=== PATIENT | male | born 1965 | race Caucasian/White ===

== ENCOUNTER → 2017-08-17 | Outpatient (REF) | payer OTHER ==
[2017-08-17 21:46] LABS: ALKALINE PHOSPHATASE 81 U/L (45-117); ALT/SGPT 56 U/L (12-78); ANION GAP 5 MEQ/L (8-16); AST/SGOT 32 U/L (7-37); BILIRUBIN,TOTAL 0.4 MG/DL (0.2-1.0); BLOOD UREA NITROGEN 11 MG/DL (7-18); CALCIUM LEVEL 8.7 MG/DL (8.5-10.1); CARBON DIOXIDE LEVEL 30 MEQ/L (21-32); CHLORIDE LEVEL 108 MEQ/L (98-107); CHOLESTEROL LEVEL 89 MG/DL (<200); CREATININE FOR GFR 0.83 MG/DL (0.70-1.30); GLOMERULAR FILTRATION RATE > 60.0 (>56); GLUCOSE, FASTING 77 MG/DL (70-100); HDL CHOLESTEROL 39 MG/DL (>40); POTASSIUM SERUM 4.5 MEQ/L (3.5-5.1); SODIUM LEVEL 143 MEQ/L (136-145); TRIGLYCERIDES LEVEL 141 MG/DL (<150)
[2017-08-17 21:47] LABS: ALBUMIN 4.1 GM/DL (3.2-5.2); ALBUMIN/GLOBULIN RATIO 1.24 (1.00-1.93); CHOLESTEROL RISK RATIO 2.282 (<5); FERRITIN 99 NG/ML (26-388); IRON (FE) 108 UG/DL (65-175); LDL CHOLESTEROL 21.8 MG/DL (<100); NON-HDL-C 50 MG/DL; PERCENT SATURATION 38.2 % (19.7-50.0); TOTAL IRON BINDING CAPACITY 283 UG/DL (250-450); TOTAL PROTEIN 7.4 GM/DL (6.4-8.2)
[2017-08-17 22:37] LABS: HEMATOCRIT 40.5 % (42.0-52.0); HEMOGLOBIN 14.1 g/dl (13.5-17.5); MEAN CORPUSCULAR HGB CONC 34.8 g/dl (32.0-36.5); MEAN CORPUSCULAR VOLUME 94.8 fl (80.0-96.0); PLATELET COUNT, AUTOMATED 235 10^3/uL (150-450); RED BLOOD COUNT 4.27 10^6/uL (4.30-6.10); RED CELL DISTRIBUTION WIDTH 12.3 % (11.5-14.5); WHITE BLOOD COUNT 5.8 10^3/uL (4.0-10.0)
[2017-08-18 14:38] LABS: TOTAL 25(OH) VITAMIN D 57.5 NG/ML (30.0-100.0)
== END ==
LOC: M SFHCLERA 10:28
DX: E83.119 Hemochromatosis, unspecified (principal); E78.5 Hyperlipidemia, unspecified; E55.9 Vitamin D deficiency, unspecified

== ENCOUNTER → 2017-11-27 | Outpatient (CLI) | payer BC, OTHER | LOC: M LRY 10:53 | DX: R06.02 Shortness of breath (principal) ==

== ENCOUNTER 2018-04-26 18:20 | Day surgery (SDC) | payer BC, OTHER ==
[~2018-04-26] VITALS: Ht 182.9 cm; Wt 95.5 kg
[2018-04-26] MEDS ORDERED: NS 1,000 ML IV SCH (18:29)
[2018-04-26] MEDS ORDERED: MORPHINE 4 MG/ML 1ML VIAL/SYRINGE (J2270) IV ONE (18:30)
[2018-04-26] MEDS ORDERED: ROSU40TA3 PO (18:35)
[2018-04-26] MEDS ORDERED: fentaNYL 100 MCG/2 ML INJECTION (J3010) As Ordered ONE ×2 (19:20→21:06)
[2018-04-26] MEDS ORDERED: fentaNYL 100 MCG/2 ML INJECTION (J3010) IV ONE (19:30)
--- NOTE | 2018-04-26 19:36 | REP ---
Right ankle: Four views. History: Trauma. Findings: Four views right ankle demonstrate a trimalleolar fracture dislocation of the right ankle. The foot is dislocated posteriorly and laterally. Medial malleolar, posterior tibial, and oblique distal fibular fractures are seen. No hindfoot fracture is seen. There is associated swelling. Impression: Trimalleolar fracture dislocation of the right ankle. Electronically Signed by Sean Lamb MD 04/26/2018 07:28 P
--- NOTE | 2018-04-26 20:35 | REPVR ---
EXAM: CT Right Lower Extremity Without IV Contrast, Ankle EXAM DATE/TIME: 04/26/2018 7:55 PM CLINICAL HISTORY: 53 years old, male; Pain; Ankle; Bilateral; Additional info: Trauma TECHNIQUE: CT of the Right lower extremity without intravenous contrast was performed. Exam focused on the ankle. All CT scans at this facility use at least one of these dose optimization techniques: automated exposure control; mA and/or kV adjustment per patient size (includes targeted exams where dose is matched to clinical indication); or iterative reconstruction. Coronal and sagittal reformatted images were created and reviewed. COMPARISON: CR Ankle, complete 04/26/2018 6:36 PM FINDINGS: There is a trimalleolar fracture of the distal tibia with posterior dislocation of the talus. There is a long oblique fracture of the distal fibular metaphysis, a comminuted fracture of the medial malleolus and a comminuted fracture the posterior tibial malleolus, all of which are posteriorly displaced along with the posterior dislocation of the talus. The lateral talofibular joint and medial tibiotalar joint spaces are maintained. No fracture of the talus is identified. There is a tiny amount of gas within the lateral aspect of the ankle joint (axial images 48 and 49), likely vacuum phenomenon. The sequelae of a compound injury is not excluded. The subtalar, talonavicular and calcaneocuboid joints are unremarkable. IMPRESSION: Trimalleolar ankle fracture with posterior dislocation of the talus. Electronically signed by: Felton Wan On 04/26/2018 20:35:19 PM
[2018-04-26] MEDS ORDERED: D 50CAP PO (20:46)
[2018-04-26] MEDS ORDERED: PROPOFOL 200 MG/20 ML VIAL As Ordered ONE ×4 (21:02→23:39)
[2018-04-26] MEDS ORDERED: ONDANSETRON 4MG/2ML VIAL (J2405) As Ordered ONE ×2 (21:02→22:28)
[2018-04-26] MEDS ORDERED: dexameTHASONE 4 MG/ML 1ML VIAL (J1100) As Ordered ONE ×2 (21:02→22:28)
[2018-04-26] MEDS ORDERED: LIDOCAINE 2% INJ 100 MG/5 ML SDV (FOR ANES.) As Ordered ONE ×2 (21:03→22:28)
[2018-04-26] MEDS ORDERED: MIDAZOLAM INJ 2 MG/2 ML VIAL (J2250) As Ordered ONE (21:06)
[2018-04-26] MEDS ORDERED: BUPIVACAINE/EPIN 0.25% 30 ML VIAL As Ordered ONE (21:59)
[2018-04-26] MEDS ORDERED: ceFAZolin 2 GM/D5W 50 ML IV BAG (J0690 PER 500MG) As Ordered ONE (21:59)
[2018-04-26] MEDS ORDERED: BUPIVACAINE/DEXTROSE 0.75% 2 ML AMP As Ordered ONE (22:28)
[2018-04-27] VITALS (9 sets, daily range): BP systolic 125–145; BP diastolic 31–83
[2018-04-27] MEDS ORDERED: LR 1,000 ML IV SCH (00:45)
[2018-04-27] MEDS ORDERED: METOCLOPRAMIDE INJ 10MG/2ML VIAL (J2765) IV PRN (00:45)
[2018-04-27] MEDS ORDERED: PERCOCET 5MG/325MG TAB PO PRN ×2 (00:45→01:30)
[2018-04-27] MEDS ORDERED: ONDANSETRON 4MG/2ML VIAL (J2405) IV PRN (00:45)
[2018-04-27] MEDS ORDERED: fentaNYL 100 MCG/2 ML INJECTION (J3010) IV PRN (00:45)
[2018-04-27] MEDS ORDERED: PERCOCET 5MG/325MG TAB As Ordered ONE (00:58)
[2018-04-27] MEDS ORDERED: PROMETHAZINE INJ 25 MG/ML VIAL (J2550) IV PRN (01:30)
[2018-04-27] MEDS ORDERED: D5W/LR 1,000 ML IV SCH (01:30)
[2018-04-27] MEDS ORDERED: MORPHINE 4 MG/ML 1ML VIAL/SYRINGE (J2270) IV PRN (01:30)
[2018-04-27] MEDS: PERCOCET 5MG/325MG TAB PO PRN ×2 (03:20→15:13)
--- NOTE | 2018-04-27 04:29 | REP ---
Clinical: Fracture fixation. Technique: Intraoperative fluoroscopic imaging using portable C-arm technique. Findings: Three intraoperative images demonstrate the patient to be status post fixation for medial malleolar fracture. Satisfactory alignment of the fracture fragment and placement of two compression screws into the distal tibial metaphysis noted. Total fluoroscopic time 49 seconds. Impression: Status post open reduction and fixation for medial malleolar fracture. Electronically Signed by Jerzy Palomino MD 04/27/2018 04:20 A
[2018-04-27] MEDS ORDERED: ASPI325T PO (06:26)
[2018-04-27] MEDS ORDERED: PERC5TAB12 PO (06:26)
[2018-04-27] MEDS ORDERED: TAMSULOSIN 0.4 MG CAP PO SCH (09:00)
[2018-04-27] MEDS ORDERED: ASPIRIN ENTERIC 325 MG TAB PO SCH (09:00)
--- NOTE | 2018-04-27 13:17 | RO ---
DATE OF PROCEDURE: 04/26/2018 The procedure was finished on 04/27/2018 at 0030 hours in the morning. PREOPERATIVE DIAGNOSIS: Right ankle trimalleolar fracture-dislocation. POSTOPERATIVE DIAGNOSIS: Right ankle trimalleolar fracture-dislocation. PROCEDURE PERFORMED: Open reduction, internal fixation of right ankle trimalleolar fracture-dislocation with fixation of medial malleolus, as well as the lateral malleolus. SURGEON: Jamal Ramirez MD ANESTHESIA: Dr. Roman, spinal. ESTIMATED BLOOD LOSS: Less than 50. COMPLICATIONS: None. TOURNIQUET: No tourniquet was inflated. INDICATIONS: Right ankle fracture-dislocation required an emergency to get the care implemented promptly prior to fracture blisters. Next, consent reviewed in detail, see separate comments on consent in History and Physical. OPERATIVE COURSE: Identified in the holding area, site and side verified, brought to brought to the operating room. Once spinal anesthesia was administered, he was then sterilely prepped and draped in the usual fashion. A tourniquet was placed on the right thigh but was not inflated. Next, we began the surgical procedure. Incisions outlined with a marking pen and infiltrated with 0.25% Marcaine with epinephrine. There was a semilunar area of dusky skin proximal to the medial malleolus but no open wound. Next, lateral malleolus incision was made first with a #10 blade knife, developed down through skin, subcuticular tissues, quite significant soft tissue disruption was appreciated here and the fracture was also encountered. The fracture was exposed and fracture reduction clamps were utilized to reduce the fracture anatomically. Anterior-posterior lag screw was placed to secure the fracture. Next, I was able to remove the fracture reduction forceps. I selected an 8-hole plate. The plate was contoured and I drilled and placed the appropriate cortical and cancellus screws. Next, irrigation was accomplished. I provisionally closed the soft tissue to allow wound closure. Next, attention turned to medial malleolus. Fluoroscopic visualization was obtained. The medial malleolus was slightly displaced. I was not able to reduce the medial malleolus with a percutaneous wire so I did make an incision inferior to the dusky tissue. This was about 1 fingerbreadth from the dusky tissue, dissected through soft tissue, deltoid ligament was significantly disrupted, fracture was encountered. There was some deltoid incarceration within the fracture and this was cleared. Next, I reduced the medial malleolus fragment using a wire and then I placed a wire across the fracture. I placed a second wire and visualized the wire fluoroscopically. I measured, drilled and placed #4-0 cannulated screws; 36 and 40 mm, respectively. Fluoroscopy was utilized to verify the reduction was significantly implemented. Next, several fluoroscopic views were obtained, including a lateral view, which reflected good reduction. Next, irrigation was accomplished. Wound was closed medially with interrupted nylon stitch. Wound was further closed laterally; prior to wound closure I did change the AP lag screw for an 18 mm screw rather than a 20 mm screw initially placed. The wound was closed with tyra. Next, sterile dressing was applied and a short-leg plaster cast was applied. Next, the patient moved to the recovery room in good condition. We elevated the leg on two pillows. I talked to the patient and the patient's spouse postoperatively. For further details, please refer to the medical record.
--- NOTE | 2018-04-28 21:25 | ER ---
DATE OF CONSULTATION: 04/26/2018 CHIEF COMPLAINT: Right ankle fracture-dislocation. HISTORY OF PRESENT ILLNESS: 53-year-old gentleman slipped on ice in the parking lot at work, sustained an ankle fracture with deformity, was unable to ambulate, and was brought into the emergency room for further evaluation where imaging studies reflected a trimalleolar fracture-dislocation with some comminution. CT scan also accomplished in the emergency room (ER) reflected no pilon fracture but quite significant fracture of the fibula, dislocation of the joint, small posterior malleolar fragment, and a medial malleolar fragment. Orthopedics was consulted. Patient's pain is controlled with narcotic analgesics. ALLERGIES: No known drug allergies. MEDICAL HISTORY: Includes hemochromatosis and sarcoidosis. SURGICAL HISTORY: Includes lung biopsy for sarcoidosis. MEDICATIONS: Takes vitamin D. FAMILY HISTORY: Noncontributory. SOCIAL HISTORY: . No alcohol today. Last meal 11:30 a.m., [employer] sandwich. REVIEW OF SYSTEMS: Is not complaining of headache, nausea, shortness of breath, chest pains, abdominal pains, endocrine troubles, skin troubles, neurologic issues. Is complaining of musculoskeletal pain due to his injury. CLINICAL EXAMINATION: Alert and cooperative. Mood and affect appropriate. He is a very pleasant gentleman. He is not short of breath. Cardiac: Regular at 70. No abdominal distension. Right lower extremity: The ankle is in a splint placed by the ER, appreciates light touch. Toes are pink. Painful right lower extremity with any manipulation. Knee: There is no effusion. Contralateral side uninvolved. IMAGING: Reviewed as above. Despite reduction attempt by ER, ankle remains dislocated. IMPRESSION: Trimalleolar fracture-dislocation of the right lower extremity. RECOMMENDATIONS: I talked with the patient about interventions, including conscious sedation and reduction in the ER versus declaring an emergency and doing this case emergently in the operating room, which is what I recommend as we feel that we can do this case promptly. Short-form history and physical (H and P) and a consent document were completed, including a karla discussion of risks and benefits of the operative procedure including, but not limited to, pain, failure, limp, infection, need for more surgery, blood clots, deformity, and other issues. Patient agrees to proceed. Next, coordinated care with the emergency department. Coordinated care with the anesthesia department. Coordinated care with the operating room (OR) staff. For further details, please refer to the medical record.
== END 2018-04-27 15:30 | disposition home or self-care (01) ==
LOC: EDBD 18:20 → M ED 18:20 → M SDC 20:00 → M PED 04-27 01:18 → M SDC 04-27 15:30
PROVIDERS: ATTEND Orthopaedic Surgery
DX: S82.851A Displaced trimalleolar fracture of right lower leg, initial encounter for closed fracture (principal); W00.0XXA Fall on same level due to ice and snow, initial encounter; E78.5 Hyperlipidemia, unspecified; G47.33 Obstructive sleep apnea (adult) (pediatric); D86.0 Sarcoidosis of lung; E83.119 Hemochromatosis, unspecified; Z79.01 Long term (current) use of anticoagulants
CPT/HCPCS: 27822; 73610; 73700; 76000; 96374; 97116; 97161; 97530; 99284; C1713; J0690; J1100; J2250; J2270; J2405; J3010

== ENCOUNTER → 2018-10-03 | Outpatient (REF) | payer OTHER ==
[~2018-10-03] MED LIST: ASPI-1 PO; D 50CAP PO; PERC5TAB12 PO; ROSU40TA4 PO
[2018-10-03 12:58] LABS: BASO % 0.7 % (0.0-1.0); EOS # 0.2 10^3/uL (0.0-0.50); EOS % 2.9 % (0.0-3.0); HEMATOCRIT 41.5 % (42.0-52.0); HEMOGLOBIN 14.3 g/dl (13.5-17.5); LYMPH # 1.4 10^3/uL (1.5-4.5); LYMPH % 24.4 % (24.0-44.0); MEAN CORPUSCULAR HEMOGLOBIN 33.9 pg (27.0-33.0); MEAN CORPUSCULAR HGB CONC 34.5 g/dl (32.0-36.5); MEAN CORPUSCULAR VOLUME 98.3 fl (80.0-96.0); MONO # 0.5 10^3/uL (0.0-0.8); MONO % 9.3 % (0.0-5.0); NEUTROPHILS # 3.6 10^3/uL (1.8-7.7); NEUTROPHILS % 62.4 % (36.0-66.0); PLATELET COUNT, AUTOMATED 243 10^3/uL (150-450); RED BLOOD COUNT 4.22 10^6/uL (4.30-6.10); WHITE BLOOD COUNT 5.8 10^3/uL (4.0-10.0)
[2018-10-03 13:01] LABS: ALT/SGPT 44 U/L (12-78); BILIRUBIN,TOTAL 0.4 MG/DL (0.2-1.0); BLOOD UREA NITROGEN 15 MG/DL (7-18); CALCIUM LEVEL 9.6 MG/DL (8.5-10.1); CARBON DIOXIDE LEVEL 31 MEQ/L (21-32); CHLORIDE LEVEL 106 MEQ/L (98-107); CHOLESTEROL LEVEL 105 MG/DL (<200); CHOLESTEROL RISK RATIO 2.916 (<5); CREATININE FOR GFR 0.79 MG/DL (0.70-1.30); FERRITIN 86 NG/ML (26-388); GLOMERULAR FILTRATION RATE > 60.0 (>56); GLUCOSE, FASTING 84 MG/DL (70-100); HDL CHOLESTEROL 36 MG/DL (>40); LDL CHOLESTEROL 37 MG/DL (<100); NON-HDL-C 69 MG/DL; POTASSIUM SERUM 4.6 MEQ/L (3.5-5.1); SODIUM LEVEL 141 MEQ/L (136-145); TOTAL PROTEIN 7.8 GM/DL (6.4-8.2); TRIGLYCERIDES LEVEL 158 MG/DL (<150)
[2018-10-03 13:07] LABS: TOTAL 25(OH) VITAMIN D 75.9 NG/ML (30.0-100.0)
[2018-10-03 13:28] LABS: HEMOGLOBIN A1c 5.7 %
== END ==
LOC: M SFHCLERA 08:37
PROVIDERS: ATTEND Family Medicine
DX: E55.9 Vitamin D deficiency, unspecified (principal); E83.119 Hemochromatosis, unspecified; D86.9 Sarcoidosis, unspecified; E78.5 Hyperlipidemia, unspecified

== ENCOUNTER → 2021-01-17 | Outpatient (CLI) | payer OTHER ==
[~2021-01-17] MED LIST changes: +D-50CAP PO; +VITMTA PO
== END ==
LOC: M LABSMTC 09:30
PROVIDERS: ATTEND Anesthesiology
DX: Z20.828 Contact with and (suspected) exposure to other viral communicable diseases (principal); Z11.52 Encounter for screening for COVID-19

== ENCOUNTER 2021-01-22 08:47 | Day surgery (SDC) | payer OTHER ==
[~2021-01-22] VITALS: Ht 182.9 cm; Wt 95.2 kg
[~2021-01-22 08:47] MED LIST changes: +LIDOCAINE 2% 100MG/5ML SDV (FOR ANES.) As Ordered ONE; +NS 1,000 ML IV ONE; +propofoL 200 MG/20 ML VIAL As Ordered ONE
--- OUTSIDE RECORDS SUMMARY | 2021-01-22 08:52 | CCD | Continuity of Care Document ---
Author Akhil Argueta M.D. Organization Unknown Address [address], [address] [place] [address] Phone [phone] Care Team Providers Care Financial Institution Branch Manager Name Role Phone Karen Dominguez M.D. AUTM [phone] Problems Description No Information Available Social History Type Date Description Comments Sex Unknown Tobacco Use Start: Unknown Never Smoked Cigarettes ETOH Use 1/mo Tobacco Use Start: Unknown Non Smoker Smoking Status Reviewed: 09/04/19 Non Smoker Allergies and adverse reactions Description No Known Drug Allergies Medications Active Medications SIG Qnty Indications Ordering Provide r Date Vitamin D-3 125mcg (5000 Ut) Tablets 1t/d Unknown Multivitamin Adult Tablets 1 t/d Unknown Rosuvastatin Calcium 40mg Tablets 1t/d Unknown CPAP Device marras Unknown Immunizations Description No Information Available Vital Signs Date Vital Result Comment 12/11/2020 11:16am BP Systolic 132 mmHg BP Diastolic 74 mmHg Height 72 inches 6'0" Weight 213.00 lb BMI (Body Mass Index) 28.9 kg/m2 [place] Body Weight 178 lb Weight 96.617 kg BSA (Body Surface Area) 2.19 m2 12/03/2020 2:12pm BP Systolic 140 mmHg BP Diastolic 70 mmHg Heart Rate 78 /min O2 % BldC Oximetry 98 % Height 72.5 inches 6'0.50" Weight 214.00 lb BMI (Body Mass Index) 28.6 kg/m2 [place] Body Weight 178 lb Weight 97.070 kg BSA (Body Surface Area) 2.20 m2 Results Test Acquired Date Facility Test Result H/L Range Note FVL/Uli 12/03/2020 [facility] SEE IMAGE FVC-Pred 5.38 L FVC-Pre 3.61 L FVC-%Pred-Pre 67 L FVC-LLN 4.38 L Fev1-Pred 4.13 L Fev1-Pre 3.01 L Fev1-%Pred-Pre 73 L Fev1-LLN 3.28 L Fev6-Pred 5.17 L Fev6-Pre 3.61 L Fev6-%Pred-Pre 69 L Fev6-LLN 4.20 L Kfw0mxc-Hcpb 77 % Ujy9buv-Hvc 84 % Yyg6wjy-%Pred-Pre 108 % Mbz3qcj-DTO 67 % Ycr3ktf-Mcgw 96 % Obl2vjh-Cxp 100 % Cxv9thd-%Pred-Pre 103 % FEFMax-Pred 10.19 L/E/sec FEFMax-Pre 5.77 L/E/sec FEFMax-%Pred-Pre 56 L/E/sec FEFMax-LLN 7.70 L/E/sec Zkk0105-Kcps 3.51 L/E/sec Cci1619-Gvp 3.46 L/E/sec Qio0147-%Pred-Pre 98 L/E/sec Soa3738-VEN 1.79 L/E/sec ExpTime-Pre 6.51 sec Qtb0axp0-Pgqa 80 % Xxk6erm6-Xxf 84 % Iae6owt3-%Pred-Pre 104 % Ssr4vsj6-LWE 71 % Procedures Date Code Description Status 12/11/2020 34964 Office/Outpatient New Moderate M DM 45-59 Minutes Completed 12/03/2020 84537 Office/Outpatient Established Mo d MDM 30-39 Min Completed 12/03/2020 38724 Spirometry Completed Medical Devices Description No Information Available Encounters Type Date Location Provider Dx Diagnosis Office Visit 12/11/2020 10:30a [facility] Gastroenterology Onesimo Calabrese M.D. K62.5 Hemorrhage of anus and rectu m K63.5 Polyp of colon Office Visit 12/03/2020 2:00p [facility] Pulmonary/Thoracic Yanna Medina M.D. 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 12/11/2020 K63.5 Polyp of colon Jose Ferreira ala, M.D. 12/03/2020 D86.2 Sarcoidosis of lung with sarcoid osis of lymph nodes Yanna Herrmann M.D. 12/03/2020 G47.33 Obstructive sleep apnea (adult) (pediatric) Yanna Herrmann M.D. Plan of Treatment Future Appointment(s):* 01/22/2021 2:00 am - Jose Calabrese M.D. at [facility] Gastroenterology Practice * 12/08/2021 2:30 pm - Yanna Herrmann M.D. 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 BRBPR Scheduled 11/17 [facility] Medical [facility] [address], [address] [place] [address] [phone]
--- OUTSIDE RECORDS SUMMARY | 2021-01-22 08:52 | CCD ---
Author Author [facility] Organization [facility] Address Unknown Phone Unavailable Care Team Providers Care County Auditor Name Role Phone Karen Dominguez Unavailable PROBLEMS Type Condition ICD9-CM Code [id number] Code Onset Dates Condition S tatus W/U Status Risk SNOMED Code Notes Problem Obstructive sleep apnea G47.33 Active confirmed 90670894 Problem Vitamin D deficiency E55.9 Active confirmed 29912025 Problem Hemochromatosis, unspecified hemochromatosis type E83.119 Active confirmed 085037132 Problem Sarcoidosis D86.9 Active confirmed 61082591 Problem Dyslipidemia E78.5 Active confirmed 4972270 07 ALLERGIES Allergen (clinical drug ingredient) Drug/Non Drug Allergy do cumented on EMR Reaction Allergy Type Onset Date Status Ragweed Unknown Drug Allergy Active ENCOUNTERS from 1966 to 2020-12-26 Encounter Location Date Provider Diagnosis [facility] [address] [facility] [phone] [place] [address] Dec, Karen Dominguez Dyslipidemia E78.5 ; Prevent [facility] Z00.00 ; Diabetes mellitus screening Z13.1 and Encounter for immunization Z23 IMMUNIZATIONS Vaccine Route Administration Date Status COVID-19 dose #2 given elsewhere Unspecified Unknown May Administered COVID-19 dose #1 given elsewhere Unspecified Unknown Apr 26, 2020 Administered [facility] Given Unknown July 25, 2020 Administ ered Influenza 18 yrs & older Flublok IM Intramuscular Dec 23, 2020 Administered TDAP 0.5mL (Boostrix) IM Intramuscular October 03, 2018 Administe red SOCIAL HISTORY Tobacco Use: Social History Observation Description Date Details (start date - stop date) Never Smoker Sex Assigned At : Social History Observation Description Sex Assigned At Unknown Education: Question Answer Notes Level of Education: College Audit Question Answer Notes Total Score: 0 Interpretation: Alcohol Education Language: Question Answer Notes Languages spoken: Pashto Denominational: Question Answer Notes Denominational 21 Confucianist Sexual Hx: Question Answer Notes Had sex in the last 12 months (vaginal, oral, or anal)? Yes Have you ever had an STD? No with Women only Drug and Alcohol Question Answer Notes Total Score: 0 Interpretation: No problems reported Alcohol Screening: Question Answer Notes Did you have a drink containing alcohol in the past year? No Points 0 Interpretation Negative Tobacco Use: Question Answer Notes Are you a: never smoker REASON FOR REFERRAL No Information VITAL SIGNS Weight 216.4 lbs Dec, Weight-kg 98.16 kg Dec, Height 72 in Dec, BMI 29.35 kg/m2 Dec, Heart Rate 60 /min Dec, Respiratory Rate 16 /min Dec, Temperature 97.2 degrees Fahrenheit Dec, Oximetry 100 Dec, Blood pressure systolic 136 mm Hg Dec, Blood pressure diastolic 66 mm Hg Dec, MEDICATIONS Medication SIG (Take, Route, Frequency, Duration) Notes Start Da te End Date Status Multivitamin Adults - 1 tab Orally Daily Active Ketoconazole 2 % 5 ml to affected area, leave on 5 minutes before washing Externally Daily for 5 day(s) May, No t-Taking Vitamin D 1000 UNIT 5 capsule Orally Once a day Active Crestor 40 MG 1 tablet Orally Once a day for 90 day(s) Active PROCEDURES from 1966 to 2020-12-26 Procedure Date Ordered Result Body Site Imm: Flublok Quadrivalent 18 years & older 0.5mL IM Influenza 08-01-05 N/A RESULTS No Results REASON FOR VISIT SANTOS TRANSFER MEDICAL (GENERAL) HISTORY Type Description Date Medical History Hemochromatosis; followed in [place] by a income tax investigator Medical History Sarcoidosis (biopsies on lef t and right lungs in late after nodules noted incidentally, currently not needing treatment, not followed by any specialists for same, last imaging was chest x ray by previous PCP) Medical History High cholesterol on pravastatin Medical History JARRET on CPAP (diagnosed Dec 2016 in [place] use) Medical History History of vitamin D deficiency Medical History Polyp removed on screening c olonoscopy self reports January 2016, was told recall in 2020 Medical History Colon cancer screening: foll ows with annual FOBT with Dr. Medina, next colonoscopy 2020 Surgical History lung biopsies bilat Surgical History vasectomy, [place] at [facility] ter 2017 Surgical History Right ankle @ [facility] 04/2018 Goals Section No Information Health Concerns No Information MEDICAL EQUIPMENT No Information MENTAL STATUS No Information FUNCTIONAL STATUS No Information ASSESSMENTS Encounter Date Diagnosis Assessment Notes Treatment Notes Treatm ent Clinical Notes Dec, Dyslipidemia (ICD-10 - E78.5) Fasting labs to be obtained. Dec, Preventative health care (ICD-10 - Z00.00) Patient has been in touch with GI office regarding colonoscopy screening. Dec, Diabetes mellitus screening (ICD-10 - Z13.1) Due to history of hemochromatosis, will monitor closely for any diabetes mellitus. Dec, Encounter for immunization (ICD-10 - Z23) Patient Educated with: Flu Recombinant [id number] (Flu Recombinant [id number]) Patient agreeable to flu shot today. Denies any recent fevers. PLAN OF TREATMENT Treatment Notes Assessment Notes Clinical Notes Dyslipidemia Fasting labs to be o btained. Preventative health care Patient has bee n in touch with GI office regarding colonoscopy screening. Diabetes mellitus screening Due to histo ry of hemochromatosis, will monitor closely for any diabetes mellitus. Encounter for immunization Patient Educated with: Flu Recombinant [id number] (Flu Recombinant [id number]) Patient agreeable to flu shot today. De nies any recent fevers. Treatment Notes Test Name Order Date Comprehensive Metabolic Profile (CMP) 2020-12-23 LIPID PANEL (CARDIAC RISK) 2020-12-23 CBC with Differential 2020-12-23 HEMOGLOBIN A1c 2020-12-23 Next Appt Details 6 Months Reason:f/u Follow Up:6 Monthsf/u Insurance Providers Payer Name Payer Address Payer Phone Insured Name Patient Relati onship to Insured Coverage Start Date Coverage End Date [facility] [address] [address] [facility] [phone] REGLA TANG self
--- OUTSIDE RECORDS SUMMARY | 2021-01-22 08:52 | CCD ---
Author Author [facility] Organization [facility] Address Unknown Phone Unavailable Care Team Providers Care Carbide Powder Processor Name Role Phone Alicia Blackman Unavailable PROBLEMS Type Condition ICD9-CM Code [id number] Code Onset Dates Condition S tatus W/U Status Risk SNOMED Code Notes Problem Obstructive sleep apnea G47.33 Active confirmed 26447327 Problem Vitamin D deficiency E55.9 Active confirmed 72106003 Problem Hemochromatosis, unspecified hemochromatosis type E83.119 Active confirmed 388720120 Problem Sarcoidosis D86.9 Active confirmed 58839118 Problem Dyslipidemia E78.5 Active confirmed 1201611 07 ALLERGIES No Known Allergies ENCOUNTERS from 1966 to 2020-10-23 Encounter Location Date Provider Diagnosis [facility] [id number] [place] [address] [place] [address] Oct, Alicia Blackman IMMUNIZATIONS Vaccine Route Administration Date Status COVID-19 dose #2 given elsewhere Unspecified Unknown May Administered COVID-19 dose #1 given elsewhere Unspecified Unknown Apr 26, 2020 Administered [facility] Given Unknown July 25, 2020 Administ ered TDAP 0.5mL (Boostrix) IM Intramuscular October 03, 2018 Administe red SOCIAL HISTORY Tobacco Use: Social History Observation Description Date Details (start date - stop date) Never Smoker Sex Assigned At : Social History Observation Description Sex Assigned At Unknown Audit Question Answer Notes Interpretation: Alcohol Education Total Score: 1 Language: Question Answer Notes Languages spoken: Malagasy Anglican: Question Answer Notes Anglican 21 Pentecostalism Drug and Alcohol Question Answer Notes Total Score: 0 Interpretation: No problems reported Tobacco Use: Question Answer Notes Are you a: never smoker REASON FOR REFERRAL No Information VITAL SIGNS No information MEDICATIONS Medication SIG (Take, Route, Frequency, Duration) Notes Start Da te End Date Status Multivitamin Adults - 1 tab Orally Daily Active Crestor 40 MG 1 tablet Orally Once a day for 90 day(s) Active Ketoconazole 2 % 5 ml to affected area, leave on 5 minutes before washing Externally Daily for 5 day(s) May, Ac tive Vitamin D 1000 UNIT 5 capsule Orally Once a day Active PROCEDURES No Information RESULTS No Results REASON FOR VISIT need updated script for my CPAP MEDICAL (GENERAL) HISTORY Type Description Date Medical History Hemochromatosis; followed in [place] by a pole lift operator Medical History Sarcoidosis (biopsies on lef t [...] in 2020 Medical History Colon cancer screening: [facility] with annual FOBT with Dr. Medina, next colonoscopy 2020 Surgical History lung biopsies bilat Surgical History vasectomy, [place] at [facility] 2016 Surgical History Right ankle @ [facility] 04/2018 Goals Section No Information Health Concerns No Information MEDICAL EQUIPMENT No Information MENTAL STATUS No Information FUNCTIONAL STATUS No Information ASSESSMENTS No Information PLAN OF TREATMENT Medication Medication Name Sig Start Date Stop Date Crestor 40 MG 1 tablet Orally Once a day for 90 day(s) Ketoconazole 2 % 5 ml to affected area, leave on 5 minutes before washing Externally Daily for 5 day(s) May, Next Appt Details Provider Name:Karen Dominguez, 2020-12-05 04:00:00 PM, [address] [address] [facility], , [place], [address], Insurance Providers Payer Name Payer Address Payer Phone Insured Name Patient Relati onship to Insured Coverage Start Date Coverage End Date [facility] [address] [address] [facility] [phone] REGLA TANG self
--- OUTSIDE RECORDS SUMMARY | 2021-01-22 08:52 | CCD | Continuity of Care Document ---
Author Akhil Argueta M.D. Organization Unknown Address [address], [address] [place] [address] Phone [phone] Care Team Providers Care Rug Drying Machine Operator Name Role Phone Karen Dominguez M.D. AUTM [phone] Problems Description No Information Available Social History Type Date Description Comments Sex Unknown Tobacco Use Start: Unknown Never Smoked Cigarettes ETOH Use 1/mo Tobacco Use Start: Unknown Non Smoker Smoking Status Reviewed: 09/04/19 Non Smoker Allergies, Adverse Reactions, Alerts Description No Known Drug Allergies Medications Active Medications SIG Qnty Indications Ordering Provide r Date Vitamin D-3 125mcg (5000 Ut) Tablets 1t/d Unknown Multivitamin Adult Tablets 1 t/d Unknown Rosuvastatin Calcium 40mg Tablets 1t/d Unknown CPAP Device marras Unknown Immunizations Description No Information Available Vital Signs Date Vital Result Comment 12/03/2020 2:12pm BP Systolic 140 mmHg BP Diastolic 70 mmHg Heart Rate 78 /min O2 % BldC Oximetry 98 % Height 72.5 inches 6'0.50" Weight 214.00 lb BMI (Body Mass Index) 28.6 kg/m2 [place] Body Weight 178 lb Weight 97.070 kg BSA (Body Surface Area) 2.20 m2 09/04/2019 3:05pm BP Systolic 128 mmHg BP Diastolic 68 mmHg Heart Rate 68 /min O2 % BldC Oximetry 97 % Body Temperature 97.5 F Height 72.5 inches 6'0.50" Weight 209.00 lb BMI (Body Mass Index) 28.0 kg/m2 [place] Body Weight 178 lb Weight 94.802 kg BSA (Body Surface Area) 2.18 m2 Results Test Acquired Date Facility Test Result H/L Range Note FVL/[place] 12/03/2020 [facility] [employer] PDFReport SEE IMAGE FVC-Pred 5.38 L FVC-Pre 3.61 L FVC-%Pred-Pre 67 L FVC-LLN 4.38 L Fev1-Pred 4.13 L Fev1-Pre 3.01 L Fev1-%Pred-Pre 73 L Fev1-LLN 3.28 L Fev6-Pred 5.17 L Fev6-Pre 3.61 L Fev6-%Pred-Pre 69 L Fev6-LLN 4.20 L Afe7vtb-Ulyw 77 % Dkg1tgq-Xsa 84 % Ssz8kic-%Pred-Pre 108 % Fbl5kuw-XFZ 67 % Nbn9biz-Xdpz 96 % Ltq7bfe-Igg 100 % Iql8yqy-%Pred-Pre 103 % FEFMax-Pred 10.19 L/E/sec FEFMax-Pre 5.77 L/E/sec FEFMax-%Pred-Pre 56 L/E/sec FEFMax-LLN 7.70 L/E/sec Hdv7952-Aqub 3.51 L/E/sec Yzy8674-Yod 3.46 L/E/sec Gqm1646-%Pred-Pre 98 L/E/sec Lcc6592-MDF 1.79 L/E/sec ExpTime-Pre 6.51 sec Son9bxe9-Gexw 80 % Qfu2awj0-Ctt 84 % Zox3ctp6-%Pred-Pre 104 % Acm9qmy8-OHW 71 % Procedures Date Code Description Status 12/03/2020 75455 Office/Outpatient Established Mo d MDM 30-39 Min Completed 12/03/2020 46513 Spirometry Completed Medical Devices Description No Information Available Encounters Type Date Location Provider Dx Diagnosis Office Visit 12/03/2020 2:00p [facility] K Yanna parikh M.D. 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 12/03/2020 G47.33 Obstructive sleep apnea (adult) (pediatric) Yanna Herrmann M.D. Plan of Treatment Future Appointment(s):* 12/08/2021 2:30 pm - Yanna Herrmann M.D. at [facility] Functional Status Description No Information Available Mental Status Mental Condition Comment Date Status Cognitive ability not impaired A ctive Referrals Refer to Reason for Referral Status Appt Date Jose Calabrese M.D. BRBPR Scheduled 11/17 [facility]-[address], [address] [place] [address] [phone]
--- OUTSIDE RECORDS SUMMARY | 2021-01-22 08:52 | CCD | Continuity of Care Document ---
Author Author Akhil DAVE M.D. Organization Unknown Address [address] [place] [address] Phone [phone] Care Team Providers Care Wind Field Service Manager Name Role Phone Karen Dominguez M.D. [facility] [phone] Problems Description No Information Available Social History Type Date Description Comments Sex Unknown Tobacco Use Start: Unknown Never Smoked Cigarettes Smoking Status Reviewed: 09/04/19 Never Smoked Cigarettes Tobacco Use Start: Unknown Patient has never smoked Allergies, Adverse Reactions, Alerts Description No Known Drug Allergies Medications Active Medications SIG Qnty Indications Ordering Provide r Date Vitamin D-3 125mcg (5000 Ut) Table ts 1 cap by mouth twice a day Unknown Multivitamin Adult Tablets 1 by mouth every day Unknown Rosuvastatin Calcium 40mg Tablets 1 by mouth every day Unknown CPAP Device marras Unknown Immunizations Description No Information Available Vital Signs Date Vital Result Comment 12/03/2020 2:12pm BP Systolic 140 mmHg BP Diastolic 70 mmHg Heart Rate 78 /min O2 % BldC Oximetry 98 % Height 72.5 inches 6'0.50" Weight 214.00 lb BMI (Body Mass Index) 28.6 kg/m2 [place] Body Weight 178 lb Weight 97.070 kg BSA (Body Surface Area) 2.20 m2 09/04/2019 3:05pm BP Systolic 128 mmHg BP Diastolic 68 mmHg Heart Rate 68 /min O2 % BldC Oximetry 97 % Body Temperature 97.5 F Height 72.5 inches 6'0.50" Weight 209.00 lb BMI (Body Mass Index) 28.0 kg/m2 [place] Body Weight 178 lb Weight 94.802 kg BSA (Body Surface Area) 2.18 m2 Results Test Acquired Date Facility Test Result H/L Range Note FVL/[place] 12/03/2020 [employer] PDFReport SEE IMAGE FVC-Pred 5.38 L FVC-Pre 3.61 L FVC-%Pred-Pre 67 L FVC-LLN 4.38 L Fev1-Pred 4.13 L Fev1-Pre 3.01 L Fev1-%Pred-Pre 73 L Fev1-LLN 3.28 L Fev6-Pred 5.17 L Fev6-Pre 3.61 L Fev6-%Pred-Pre 69 L Fev6-LLN 4.20 L Ams6zay-Ttfp 77 % Fkg2pvw-Vhq 84 % Vst7wyc-%Pred-Pre 108 % Jhg6duc-SBQ 67 % Sbo8bbv-Kigk 96 % Gzn8awg-Jlb 100 % Yzo8ypd-%Pred-Pre 103 % FEFMax-Pred 10.19 L/E/sec FEFMax-Pre 5.77 L/E/sec FEFMax-%Pred-Pre 56 L/E/sec FEFMax-LLN 7.70 L/E/sec Ncz0416-Ecbx 3.51 L/E/sec Kiq2328-Ydl 3.46 L/E/sec Ofy2091-%Pred-Pre 98 L/E/sec Ihv3716-XNA 1.79 L/E/sec ExpTime-Pre 6.51 sec Cnz1bdw6-Vsdm 80 % Cxr1cff7-Rvz 84 % Puo0hld5-%Pred-Pre 104 % Kxx7lwc2-KRI 71 % Procedures Description No Information Available Medical Devices Description No Information Available Encounters Description No Information Available Assessments Date Code Description Provider 12/03/2020 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 12/03/2020 G47.33 Obstructive sleep apnea (adult) (pediatric) Yanna Dave M.D. Plan of Treatment Future Appointment(s):* 12/08/2021 2:30 pm - Yanna Dave M.D. at [facility] * 12/11/2020 10:30 am - Jose Calabrese M.D. 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 BRBPR Scheduled 11/[address], [address] [place] [address] [phone]
--- OUTSIDE RECORDS SUMMARY | 2021-01-22 08:52 | CCD | Continuity of Care Document ---
Author Author Akhil DAVE M.D. Organization Unknown Address [address] [place] [address] Phone [phone] Care Team Providers Care Pvc Monitor Name Role Phone Karen Dominguez M.D. [facility] [[email or web address]M [phone] Problems Description No Information Available Social History [...] lb BMI (Body Mass Index) 28.6 kg/m2 [place] Body Weight 178 lb Weight 97.070 kg BSA (Body Surface Area) 2.20 m2 09/04/2019 3:05pm BP Systolic 128 mmHg BP Diastolic 68 mmHg Heart Rate 68 /min O2 % BldC Oximetry 97 % Body Temperature 97.5 F Height 72.5 inches 6'0.50" Weight 209.00 lb BMI (Body Mass Index) 28.0 kg/m2 [place] Body Weight 178 lb Weight 94.802 kg BSA (Body Surface Area) 2.18 m2 Results Test Acquired Date Facility Test Result H/L Range Note FVL/[place] 12/03/2020 [employer] PDFReport SEE IMAGE FVC-Pred 5.38 L FVC-Pre 3.61 L FVC-%Pred-Pre 67 L FVC-LLN 4.38 L Fev1-Pred 4.13 L Fev1-Pre 3.01 L Fev1-%Pred-Pre 73 L Fev1-LLN 3.28 L Fev6-Pred 5.17 L Fev6-Pre 3.61 L Fev6-%Pred-Pre 69 L Fev6-LLN 4.20 L Dws3khx-Pvgq 77 % Lwy1daj-Xwi 84 % Tew4txa-%Pred-Pre 108 % Jry2ykn-GGT 67 % Vdu2emb-Asur 96 % Ejk3zsu-Gdi 100 % Vfv8zkt-%Pred-Pre 103 % FEFMax-Pred 10.19 L/E/sec FEFMax-Pre 5.77 L/E/sec FEFMax-%Pred-Pre 56 L/E/sec FEFMax-LLN 7.70 L/E/sec Kgf3810-Kdxm 3.51 L/E/sec Bnn1603-Fzm 3.46 L/E/sec Wib4537-%Pred-Pre 98 L/E/sec Wbn9197-GRS 1.79 L/E/sec ExpTime-Pre 6.51 sec Jdv0wdq0-Qvop 80 % Qxi0zee5-Dpm 84 % Pxz6gew2-%Pred-Pre 104 % Mmh7upk4-ANV 71 % Procedures Date Code Description Status 12/03/2020 98971 Office/Outpatient Established Mo d MDM 30-39 Min Completed 12/03/2020 81964 Spirometry Completed Medical Devices Description No Information Available Encounters Type Date Location Provider Dx Diagnosis Office Visit 12/03/2020 2:00p [facility] K Yanna parikh M.D. D86.2 Sarcoidosis [...] 2:30 pm - Yanna Dave M.D. at [facility] * 12/11/2020 10:30 am - Jose Calabrese M.D. at [facility] 12/03/2020 - Yanna Dave M.D.* [...] Date Jose Calabrese M.D. BRBPR Scheduled 11/17 [facility], [address] [place] [address] [phone]
--- OUTSIDE RECORDS SUMMARY | 2021-01-22 08:52 | CCD | Continuity of Care Document ---
Author Author Akhil DAVE M.D. Organization Unknown Address [address] [place] [address] Phone [phone] Care Team Providers Care Loan Collector Name Role Phone Karen Dominguez M.D. [facility] [phone] Problems Description No Information Available Social History [...] lb BMI (Body Mass Index) 28.6 kg/m2 [place] Body Weight 178 lb Weight 97.070 kg BSA (Body Surface Area) 2.20 m2 09/04/2019 3:05pm BP Systolic 128 mmHg BP Diastolic 68 mmHg Heart Rate 68 /min O2 % BldC Oximetry 97 % Body Temperature 97.5 F Height 72.5 inches 6'0.50" Weight 209.00 lb BMI (Body Mass Index) 28.0 kg/m2 [place] Body Weight 178 lb Weight 94.802 kg BSA (Body Surface Area) 2.18 m2 Results Test Acquired Date Facility Test Result H/L Range Note FVL/[place] 12/03/2020 [employer] PDFReport SEE IMAGE FVC-Pred 5.38 L FVC-Pre 3.61 L FVC-%Pred-Pre 67 L FVC-LLN 4.38 L Fev1-Pred 4.13 L Fev1-Pre 3.01 L Fev1-%Pred-Pre 73 L Fev1-LLN 3.28 L Fev6-Pred 5.17 L Fev6-Pre 3.61 L Fev6-%Pred-Pre 69 L Fev6-LLN 4.20 L Avo4hhl-Mdnw 77 % Gic5fdk-Gga 84 % Eda0pjt-%Pred-Pre 108 % Aet7pbr-IGM 67 % Ymx1xos-Qasf 96 % Erk1dde-Oza 100 % Tye3zyt-%Pred-Pre 103 % FEFMax-Pred 10.19 L/E/sec FEFMax-Pre 5.77 L/E/sec FEFMax-%Pred-Pre 56 L/E/sec FEFMax-LLN 7.70 L/E/sec Xrg7730-Njhy 3.51 L/E/sec Sia3520-Gbb 3.46 L/E/sec Scr4475-%Pred-Pre 98 L/E/sec Yaf6619-CFP 1.79 L/E/sec ExpTime-Pre 6.51 sec Qmm4iye8-Mhhu 80 % Xlw7chl7-Ugn 84 % Zad8mjw6-%Pred-Pre 104 % Uke9yuu3-WCS 71 % Procedures Description No Information Available Medical Devices Description No Information Available Encounters Description No Information Available Assessments Date Code Description Provider 12/03/2020 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 12/03/2020 G47.33 Obstructive sleep apnea (adult) (pediatric) Yanna Dave M.D. Plan of Treatment Future Appointment(s):* 12/08/2021 2:30 pm - Yanna Dave M.D. at [facility] * 12/11/2020 10:30 am - Jose Calabrese M.D. at [facility] 12/03/2020 - Yanna Dave M.D.* [...] Date Jose Calabrese M.D. BRBPR Scheduled 11/[address], [address] [place] [address] [phone]
--- OUTSIDE RECORDS SUMMARY | 2021-01-22 08:52 | CCD ---
Author Author [facility] Organization [facility] Address Unknown Phone Unavailable Care Team Providers Care Nutritionist Name Role Phone Yanna Herrmann MD Unavailable Unavailable Yanna Herrmann MD Unavailable Unavailable Yanna Herrmann MD Unavailable Unavailable Yanna Herrmann MD Unavailable Unavailable Yanna Herrmann MD Unavailable Unavailable Yanna Herrmann MD Unavailable Unavailable Yanna Herrmann MD Unavailable Unavailable Yanna Herrmann MD Unavailable Unavailable Yanna Herrmann MD Unavailable Unavailable Yanna Herrmann MD Unavailable Unavailable Yanna Herrmann MD Unavailable Unavailable Yanna Herrmann MD Unavailable Unavailable Yanna Herrmann MD Unavailable Unavailable Yanna Herrmann MD Unavailable Unavailable Yanna Herrmann MD Unavailable Unavailable Yanna Herrmann MD Unavailable Unavailable Yanna Herrmann MD Unavailable Unavailable Yanna Herrmann MD Unavailable Unavailable Yanna Herrmann MD Unavailable Unavailable Yanna Herrmann MD Unavailable Unavailable Yanna Herrmann MD Unavailable Unavailable Yanna Herrmann MD Unavailable Unavailable Yanna Herrmann MD Unavailable Unavailable Yanna Herrmann MD Unavailable Unavailable Yanna Herrmann MD Unavailable Unavailable Yanna Herrmann MD Unavailable Unavailable Yanna Herrmann MD Unavailable Unavailable Yanna Herrmann MD Unavailable Unavailable Yanna Herrmann MD Unavailable Unavailable Yanna Herrmann MD Unavailable Unavailable Magno Medina Unavailable Unavailable Rebel BUSH MD Unavailable Unavailable Rebel BUSH MD Unavailable Unavailable Rebel BUSH MD Unavailable Unavailable Rebel BUSH MD Unavailable Unavailable Rebel BUSH MD Unavailable Unavailable Rebel BUSH MD Unavailable Unavailable Rebel BUSH MD Unavailable Unavailable Rebel BUSH MD Unavailable Unavailable Rebel BUSH MD Unavailable Unavailable Rebel BUSH MD Unavailable Unavailable Rebel BUSH MD Unavailable Unavailable Rebel BUSH MD Unavailable Unavailable Rebel BUSH MD Unavailable Unavailable Rebel BUSH MD Unavailable Unavailable Rebel BUSH MD Unavailable Unavailable Rebel BUSH MD Unavailable Unavailable Rebel BUSH MD Unavailable Unavailable Rebel BUSH MD Unavailable Unavailable Rebel BUSH MD Unavailable Unavailable Rebel BUSH MD Unavailable Unavailable Rebel BUSH MD Unavailable Unavailable Rebel BUSH MD Unavailable Unavailable Rebel BUSH MD Unavailable Unavailable Rebel BUSH MD Unavailable Unavailable Rebel BUSH MD Unavailable Unavailable Rebel BUSH MD Unavailable Unavailable Rebel BUSH MD Unavailable Unavailable Rebel BUSH MD Unavailable Unavailable Rebel BUSH MD Unavailable Unavailable Rebel BUSH MD Unavailable Unavailable Rebel BUSH MD Unavailable Unavailable Rebel BUSH MD Unavailable Unavailable Rebel BUSH MD Unavailable Unavailable Rebel BUSH MD Unavailable Unavailable Rebel BUSH MD Unavailable Unavailable Rebel BUSH MD Unavailable Unavailable Rebel BUSH MD Unavailable Unavailable Rebel BUSH MD Unavailable Unavailable Rebel BUSH MD Unavailable Unavailable Rebel BUSH MD Unavailable Unavailable Rebel BUSH MD Unavailable Unavailable Rebel BUSH MD Unavailable Unavailable Rebel BUSH MD Unavailable Unavailable Rebel BUSH MD Unavailable Unavailable Rebel BUSH MD Unavailable Unavailable Rebel BUSH MD Unavailable Unavailable Rebel BUSH MD Unavailable Unavailable Rebel BUSH MD Unavailable Unavailable Rebel BUSH MD Unavailable Unavailable Rebel BUSH MD Unavailable Unavailable Rebel BUSH MD Unavailable Unavailable Rebel BUSH MD Unavailable Unavailable Rebel BUSH MD Unavailable Unavailable Rebel BUSH MD Unavailable Unavailable Rebel BUSH MD Unavailable Unavailable Rebel BUSH MD Unavailable Unavailable Rebel BUSH MD Unavailable Unavailable Rebel BUSH MD Unavailable Unavailable Rebel BUSH MD Unavailable Unavailable Rebel BUSH MD Unavailable Unavailable Rebel BUSH MD Unavailable Unavailable Rebel BUSH MD Unavailable Unavailable Rebel BUSH MD Unavailable Unavailable Rebel BUSH MD Unavailable Unavailable Rebel BUSH MD Unavailable Unavailable Rebel BUSH MD Unavailable Unavailable Rebel BUSH MD Unavailable Unavailable Rebel BUSH MD Unavailable Unavailable Rebel BUSH MD Unavailable Unavailable Rebel BUSH MD Unavailable Unavailable Rebel BUSH MD Unavailable Unavailable Rebel BUSH MD Unavailable Unavailable Rebel BUSH MD Unavailable Unavailable Rebel BUSH MD Unavailable Unavailable Rebel BUSH MD Unavailable Unavailable Rebel BUSH MD Unavailable Unavailable Rebel BUSH MD Unavailable Unavailable Rebel BUSH MD Unavailable Unavailable Rebel BUSH MD Unavailable Unavailable Rebel BUSH MD Unavailable Unavailable Rebel BUSH MD Unavailable Unavailable Rebel BUSH MD Unavailable Unavailable Rebel BUSH MD Unavailable Unavailable Rebel BUSH MD Unavailable Unavailable Tracie PACHECO MD Unavailable Unavailable Tracie PACHECO MD Unavailable Unavailable Tracie PACHECO MD Unavailable Unavailable Tracie PACHECO MD Unavailable Unavailable Tracie PACHECO MD Unavailable Unavailable Tracie PACHECO MD Unavailable Unavailable Tracie PACHECO MD Unavailable Unavailable Tracie PACHECO MD Unavailable Unavailable Tracie PACHECO MD Unavailable Unavailable Tracie PACHECO MD Unavailable Unavailable Tracie PACHECO MD Unavailable Unavailable Tracie PACHECO MD Unavailable Unavailable Tracie PACHECO MD Unavailable Unavailable Tracie PACHECO MD Unavailable Unavailable Tracie PACHECO MD Unavailable Unavailable Tracie PACHECO MD Unavailable Unavailable Tracie PACHECO MD Unavailable Unavailable Tracie PACHECO MD Unavailable Unavailable Tracie PACHECO MD Unavailable Unavailable CHARLEENRALATracie MD Unavailable Unavailable Tracie PACHECO MD Unavailable Unavailable Tracie PACHECO MD Unavailable Unavailable Tracie PACHECO MD Unavailable Unavailable Tracie PACHECO MD Unavailable Unavailable Tracie PACHECO MD Unavailable Unavailable Tracie PACHECO MD Unavailable Unavailable TARA K JOHANNY FORRESTER Unavailable Unavailable Tracie PACHECO MD Unavailable Unavailable Tracie PACHECO MD Unavailable Unavailable Tracie PACHECO MD Unavailable Unavailable Tracie PACHECO MD Unavailable Unavailable Tracie PACHECO MD Unavailable Unavailable Tracie PACHECO MD Unavailable Unavailable SANDRACRUZ MD Unavailable Unavailable CRUZ FLORES MD Unavailable Unavailable SANDRACRUZ MD Unavailable Unavailable CRUZ FLORES MD Unavailable Unavailable SANDRACRUZ HALL MD Unavailable Unavailable SANDRACRUZ MD Unavailable Unavailable SANDRACRUZ MD Unavailable Unavailable SANDRACRUZ MD Unavailable Unavailable CRUZ FLORES MD Unavailable Unavailable CRUZ FLORES MD Unavailable Unavailable CRUZ FLORES MD Unavailable Unavailable SANDRACRUZ MD Unavailable Unavailable SANDRACRUZ MD Unavailable Unavailable SANDRACRUZ MD Unavailable Unavailable SANDRACRUZ MD Unavailable Unavailable CRUZ FLORES MD Unavailable Unavailable CRUZ FLORES MD Unavailable Unavailable SANDRACRUZ MD Unavailable Unavailable SANDRACRUZ HALL MD Unavailable Unavailable CRUZ FLORES MD Unavailable Unavailable CRUZ FLORES MD Unavailable Unavailable CRUZ FLORES MD Unavailable Unavailable CRUZ FLORES MD Unavailable Unavailable SANDRACRUZ MD Unavailable Unavailable SANDRACRUZ MD Unavailable Unavailable SANDRACRUZ MD Unavailable Unavailable SANDRA, CRUZ PHELPS MD Unavailable Unavailable SANDRA, CRUZ PHELPS MD Unavailable Unavailable SANDRA, CRUZ PHELPS MD Unavailable Unavailable SANDRA, CRUZ PHELPS MD Unavailable Unavailable SANDRA, CRUZ PHELPS MD Unavailable Unavailable SANDRA, CRUZ PHELPS MD Unavailable Unavailable SANDRA, CRUZ PHELPS MD Unavailable Unavailable SANDRA, CRUZ PHELPS MD Unavailable Unavailable SANDRA, CRUZ PHELPS MD Unavailable Unavailable SANDRA, CRUZ PHELPS MD Unavailable Unavailable SANDRA, CRUZ PHELPS MD Unavailable Unavailable SANDRA, CRUZ PHELPS MD Unavailable Unavailable SANDRA, CRUZ PHELPS MD Unavailable Unavailable SANDRA, CRUZ PHELPS MD Unavailable Unavailable SANDRA, CRUZ PHELPS MD Unavailable Unavailable SANDRA, CRUZ PHELPS MD Unavailable Unavailable SANDRA, CRUZ PHELPS MD Unavailable Unavailable SANDRA, CRUZ PHELPS MD Unavailable Unavailable SANDRA, CRUZ PHELPS MD Unavailable Unavailable SANDRA, CRUZ PHELPS MD Unavailable Unavailable SANDRA, CRUZ PHELPS MD Unavailable Unavailable SANDRA, CRUZ PHELPS MD Unavailable Unavailable SANDRA, CRUZ PHELPS MD Unavailable Unavailable SANDRA, CRUZ PHELPS MD Unavailable Unavailable SANDRA, CRUZ PHELPS MD Unavailable Unavailable SANDRA, CRUZ PHELPS MD Unavailable Unavailable SANDRA, CRUZ PHELPS MD Unavailable Unavailable SANDRA, CRUZ PHELPS MD Unavailable Unavailable SANDRA, CRUZ PHELPS MD Unavailable Unavailable SANDRA, CRUZ PHELPS MD Unavailable Unavailable SANDRA, CRUZ PHELPS MD Unavailable Unavailable SANDRA, CRUZ PHELPS MD Unavailable Unavailable SANDRA, CRUZ PHELPS MD Unavailable Unavailable SANDRA, CRUZ PHELPS MD Unavailable Unavailable SANDRA, CRUZ PHELPS MD Unavailable Unavailable SANDRA, CRUZ PHELPS MD Unavailable Unavailable SANDRA, CRUZ PHELPS MD Unavailable Unavailable SANDRA, CRUZ PHELPS MD Unavailable Unavailable SANDRA, CRUZ PHELPS MD Unavailable Unavailable SANDRA, CRUZ PHELPS MD Unavailable Unavailable SANDRA, CRUZ PHELPS MD Unavailable Unavailable SANDRA, CRUZ PHELPS MD Unavailable Unavailable SANDRA, CRUZ PHELPS MD Unavailable Unavailable SANDRA, CRUZ PHELPS MD Unavailable Unavailable SANDRA, CRUZ PHELPS MD Unavailable Unavailable SANDRA, CRUZ PHELPS MD Unavailable Unavailable SANDRA, CRUZ PHELPS MD Unavailable Unavailable SANDRA, CRUZ PHELPS MD Unavailable Unavailable SANDRA, CRUZ PHELPS MD Unavailable Unavailable SANDRA, CRUZ PHELPS MD Unavailable Unavailable SANDRA, CRUZ PHELPS MD Unavailable Unavailable SANDRA, CRUZ PHELPS MD Unavailable Unavailable DARREL, W CRUZ Unavailable Unavailable DARREL, W CRUZ Unavailable Unavailable DARREL, W CRUZ Unavailable Unavailable DARREL, W CRUZ Unavailable Unavailable DARREL, W CRUZ Unavailable Unavailable DARREL, W CRUZ Unavailable Unavailable DARREL, W CRUZ Unavailable Unavailable DARREL, W CRUZ Unavailable Unavailable DARREL, W CRUZ Unavailable Unavailable DARREL, W CRUZ Unavailable Unavailable DARREL, W CRUZ Unavailable Unavailable DARREL, W CRUZ Unavailable Unavailable DARREL, W CRUZ Unavailable Unavailable DARREL, W CRUZ Unavailable Unavailable DARREL, W CRUZ Unavailable Unavailable DARREL, W CRUZ Unavailable Unavailable DARREL, W CRUZ Unavailable Unavailable DARREL, W CRUZ Unavailable Unavailable DARREL, W CRUZ Unavailable Unavailable DARREL, W CURZ Unavailable Unavailable DARREL, W CRUZ Unavailable Unavailable DARREL, W CRUZ Unavailable Unavailable DARREL, W CRUZ Unavailable Unavailable DARREL, W CRUZ Unavailable Unavailable DARREL, W CRUZ Unavailable Unavailable DARREL, W CRUZ Unavailable Unavailable DARREL, W CRUZ Unavailable Unavailable DARREL, W CRUZ Unavailable Unavailable DARREL, W CRUZ Unavailable Unavailable DARREL, W CRUZ Unavailable Unavailable DARREL, W CRUZ Unavailable Unavailable DARREL, W CRUZ Unavailable Unavailable DARREL, W CRUZ Unavailable Unavailable DARREL, W CRUZ Unavailable Unavailable DARREL, W CRUZ Unavailable Unavailable DARREL, W CRUZ Unavailable Unavailable DARREL, W CRUZ Unavailable Unavailable DARREL, W CRUZ Unavailable Unavailable DARREL, W CRUZ Unavailable Unavailable Re-disclosure Warning The records that you are about to access may contain information from federally-assisted alcohol or drug abuse programs. If such information is present, then the following federally mandated warning applies: This information has been disclosed to you from records protected by federal confidentiality rules (42 CFR part 2). The federal rules prohibit you from making any further disclosure of this information unless further disclosure is expressly permitted by the written consent of the person to whom it pertains or as otherwise permitted by 42 CFR part 2. A general authorization for the release of medical or other information is NOT sufficient for this purpose. The Federal rules restrict any use of the information to criminally investigate or prosecute any alcohol or drug abuse patient.The records that you are about to access may contain highly sensitive health information, the redisclosure of which is protected by Article 27-F of the [facility] Public Health law. If you continue you may have access to information: Regarding HIV / AIDS; Provided by facilities licensed or operated by the [facility] Office of Mental Health; or Provided by the [facility] Office for People With Developmental Disabilities. If such information is present, then the following [facility] mandated warning applies: This information has been disclosed to you from confidential records which are protected by state law. State law prohibits you from making any further disclosure of this information without the specific written consent of the person to whom it pertains, or as otherwise permitted by law. Any unauthorized further disclosure in violation of state law may result in a fine or intermediate sentence or both. A general authorization for the release of medical or other information is NOT sufficient authorization for further disc losure. Family History Family Member Name Family Member Gender Family Member Status Date o f Status Description Data Source(s) Unknown Unknown Problem [facility] ([facility]) mother Unknown Male Problem MED[facility] ([facility]) Unknown Female Problem [facility] ([facility] Encounters Encounter Providers Location Date Indications Data Source(s ) Out[place] [address] [facility] [address] 12/23/2020 12:00:00 AM EDT eCW1 ([facility]) Outpatient Attender: JOHANNY Malone/Alina/Bogdna smith/Reindl 12/11/2020 10:30:00 AM EDT MED[facility] ([facility]) Outpatient Attender: Yanna Malone/Alina/Joseluis/Ryley ndl 12/03/2020 02:00:00 PM EDT MED[facility] ([facility]) Outpatient Attender: LENIN COMBSeferrer: CRUZ Gutiérrez [id number] 11/27/2020 10:48:56 AM EDT [facility] Outpatient Attender: LENIN COMBSeferrer: CRUZ Gutiérrez [id number] 11/18/2020 01:50:44 PM EDT [facility] [place] [address] [facility] [address] 10/20/2020 12:00:00 AM EDT eCW1 ([facility]) Attender: Magno Medina 09/09/2020 08:21:06 PM EDT [facility] [place] [address] [facility] [address] 09/09/2020 12:00:00 AM EDT eCW1 ([facility]) Unknown [address] [facility] [address] 08/21/2020 12:00:00 AM EDT eCW1 ([facility]) Outpatient Attender: LENIN COMBSeferrer: CRUZ Gutiérrez [id number] 07/31/2020 01:32:53 PM EDT [facility] Outpatient Attender: LENIN FLORES MDReferrer: CRUZ Gutiérrez [id number] 07/31/2020 09:33:15 AM EDT [facility] [place] [address] [facility] [address] 06/13/2020 12:00:00 AM EDT eCW1 ([facility]) [place] [address] [facility] [address] 05/29/2020 12:00:00 AM EST eCW1 ([facility]) Outpatient Attender: LENIN FLORES MDReferrer: CRUZ Gutiérrez [id number] 04/04/2020 08:22:32 AM EST [facility] Outpatient Attender: LENIN COMBSeferrer: CRUZ Gutiérrez [id number] 04/04/2020 08:10:01 AM EST [facility] Outpatient Attender: LENIN COMBSeferrer: CRUZ Gutiérrez [id number] 04/04/2020 04:31:36 AM EST [facility] Outpatient Attender: LENIN FLORES MDReferrer: CRUZ Gutiérrez _[id number] 03/30/2020 04:14:49 AM EST [facility] [place] [address] [facility] [address] 02/03/2020 12:00:00 AM EST eCW1 ([facility]) Outpatient Referrer: BETTY GARZA MD 10:11:13 AM EDT - 11/15/2016 12:00:00 AM EDT [facility] Immun[facility] Vaccine Date Status Description Data Source(s) influenza, recombinant, quadrIvalent,injectable, prese rvative free 12/23/2020 05:06:00 PM EDT completed eCW1 ([facility]) zoster 07/25/2020 09:47:00 AM EDT completed e CW1 ([facility]) zoster 07/25/2020 09:47:00 AM EDT completed e CW1 ([facility]) zoster 07/25/2020 09:47:00 AM EDT completed e CW1 ([facility]) zoster 07/25/2020 09:47:00 AM EDT completed e CW1 ([facility]) VARICELLA-ZOSTER [id number] 07/25/2020 12:00:00 AM EDT completed [facility] COVID-19 dose #2 given elsewhere Unspecified 05/24/2020 09:0 2:00 AM EST completed eCW1 ([facility]) COVID-19 dose #2 given elsewhere Unspecified 05/24/2020 09:0 2:00 AM EST completed eCW1 ([facility]) COVID-19 dose #2 given elsewhere Unspecified 05/24/2020 09:0 2:00 AM EST completed eCW1 ([facility]) COVID-19 dose #2 given elsewhere Unspecified 05/24/2020 09:0 2:00 AM EST completed eCW1 ([facility]) COVID-19 dose #2 given elsewhere Unspecified 05/24/2020 09:0 2:00 AM EST completed eCW1 ([facility]) COVID-19 dose #2 given elsewhere Unspecified 05/24/2020 09:0 2:00 AM EST completed eCW1 ([facility]) COVID-19 VACCINE Moderna 05/24/2020 12:00:00 AM EST completed [facility] Vaccine Series Complete: YESThis Data wa s Submitted to [facility] Via [employer]. COVID-19 dose #1 given elsewhere Unspecified 04/26/2020 09:0 2:00 AM EST completed eCW1 ([facility]) COVID-19 dose #1 given elsewhere Unspecified 04/26/2020 09:0 2:00 AM EST completed eCW1 ([facility]) COVID-19 dose #1 given elsewhere Unspecified 04/26/2020 09:0 2:00 AM EST completed eCW1 ([facility]) COVID-19 dose #1 given elsewhere Unspecified 04/26/2020 09:0 2:00 AM EST completed eCW1 ([facility]) COVID-19 dose #1 given elsewhere Unspecified 04/26/2020 09:0 2:00 AM EST completed eCW1 ([facility]) COVID-19 dose #1 given elsewhere Unspecified 04/26/2020 09:0 2:00 AM EST completed eCW1 ([facility]) COVID-19 VACCINE Moderna 04/26/2020 12:00:00 AM EST completed [facility]IS Vaccine Series Complete: NOThis Data was Submitted to [facility] Via [employer]. Medications Medication Brand Name Start Date Product Form Dose Route Admi nistrative Instructions Pharmacy Instructions Status Indications Reaction Description Data Source(s) Citric Acid 75 MG/ML / Magnesium Oxide 2 1.9 MG/ML / picosulfate sodium 0.0625 MG/ML Oral Solution [Clenpiq] 10 mg-3.5 gram -12 gram/160 mL SOD PICOSULF/MAG OX/CITRIC AC 01/09/2021 12:00:00 AM EDT solution 320 F OLLOW PRE-PROCEDURE INSTRUCTIONS START DAY BEFORE PROCEDURE FOLLOW PRE-PROCEDURE INSTRUCTIONS START DAY BEFORE PROCEDURE SOLD: 2021 [facility] 5 mg 01/09/2021 12:00:00 AM EDT tablet,delayed release (DR/EC) 4 TAKE 4 TABLETS BY MOUTH TOGETHER PER BOWEL PREPARATION INSTRUCTIONS TAKE 4 TABLETS BY MOUTH TOGETHER PER BOWEL PREPARATION INSTRUCTIONS SOLD: 2021 [facility] Rosuvastatin calcium 40 MG Oral Tablet ROSUVASTATIN CALCIUM 08/22/2020 12:00:00 AM EDT tablet 90 TAKE ONE TABLET BY MOUTH CRIS DAY TAKE ONE TABLET BY MOUTH EVERY DAY SOLD: 08/23/2020 [facility] Rosuvastatin calcium 40 MG Oral Tablet ROSUVASTATIN CALCIUM 08/22/2020 12:00:00 AM EDT tablet 90 TAKE ONE TABLET BY MOUTH CRIS DAY TAKE ONE TABLET BY MOUTH EVERY DAY SOLD: 11/23/2020 [facility] Ketoconazole 20 MG/ML Medicated Shampoo KETOCONAZOLE 05/30/19 12:00:00 AM EST shampoo 120 APPLY 5MLS [1 TEASPO ONFUL] TO AFFECTED AREA, LEAVE ON 5 MINUTES BEFORE WASHING DAILY FOR 5 DAYS APPLY 5MLS [1 TEASPOONFUL] TO AFFECTED A GÉNESIS, LEAVE ON 5 MINUTES BEFORE WASHING DAILY FOR 5 DAYS SOLD: 05/29/2020 [facility] Ketoconazole 20 MG/ML Medicated Shampoo Ketoconazole 2 % Ket oconazole 2 % 05/29/2020 12:00:00 AM EST suspended Ketoconazole 2 % eCW1 ([facility]) Ketoconazole 20 MG/ML Medicated Shampoo Ketoconazole 2 % Ket oconazole 2 % 05/29/2020 12:00:00 AM EST active Ketoconazole 2 % eCW1 ([facility]) Ketoconazole 20 MG/ML Medicated Shampoo Ketoconazole 2 % Ket oconazole 2 % 05/29/2020 12:00:00 AM EST active Ketoconazole 2 % eCW1 ([facility]) Ketoconazole 20 MG/ML Medicated Shampoo Ketoconazole 2 % Ket oconazole 2 % 05/29/2020 12:00:00 AM EST active Ketoconazole 2 % eCW1 ([facility]) Ketoconazole 20 MG/ML Medicated Shampoo Ketoconazole 2 % Ket oconazole 2 % 05/29/2020 12:00:00 AM EST active Ketoconazole 2 % eCW1 ([facility]) Ketoconazole 20 MG/ML Medicated Shampoo Ketoconazole 2 % Ket oconazole 2 % 05/29/2020 12:00:00 AM EST active Ketoconazole 2 % eCW1 ([facility]) Rosuvastatin calcium 40 MG Oral Tablet ROSUVASTATIN CALCIUM 02/06/2020 12:00:00 AM EST tablet 90 TAKE ONE TABLET BY MOUTH CRIS RY DAY TAKE ONE TABLET BY MOUTH EVERY DAY SOLD: 05/16/2020 [facility] Rosuvastatin calcium 40 MG Oral Tablet ROSUVASTATIN CALCIUM 02/06/2020 12:00:00 AM EST tablet 90 TAKE ONE TABLET BY MOUTH CRIS RY DAY TAKE ONE TABLET BY MOUTH EVERY DAY SOLD: 02/08/2020 [facility] Insurance Providers Payer name Policy type / Coverage type Policy ID Covered democrat ID Covered democrat's relationship to cintron Policy Cintron Plan Information [facility] EMPIRE PLAN [id number] Spouse [id number] [facility] Commercial [id number] Family Dependent [id number] [employer] [id number] [employer] [id number] Allyson YLS [id number] [employer] [id number] Allyson YLS [id number] [employer]BS [id number] Allyson YLS [id number] [employer] [id number] Allyson YLS [id number] EMPIRE PLAN [facility] U [id number] Spouse [id number] BLUE CARD C [id number] Spouse [id number] [employer]BS [id number] Spo YLS [id number] EMPIRE PLAN [facility] U [id number] Spouse [id number] Umr Care Management 0 Umr Primary [id number] UMR U Self [employer] Workers Compensation [id number] Self [id number] [facility] [employer] [id number] Family Depende nt [facility] [id number] SP [id number] [facility] SP [id number] [facility] O [id number] S [id number] [facility] SOCIAL SVS O [id number] S ANSI-Commercial [id number] ANSI-Commercial [id number] [facility] ([facility]) [id number] Self ANSI-Commercial [id number] [employer] COMP [id number] SP [id number] BCBS EMPIRE KAN [facility] [id number] SP [id number] [facility] SP [id number] [facility] [id number] SP [id number] ANSI-Commercial [id number] ANSI-Commercial [id number] [facility] [employer] [id number] Dependent [id number] Problems, Conditions, and Diagnoses No Information Surgeries/Procedures Procedure Description Date Indications Data Source(s) Imm: Flublok Quadrivalent 18 years & older 0.5mL IM Influenz a 12/23/2020 12:00:00 AM EDT eCW1 ([facility]) OFFICE OUTPATIENT NEW 45 MINUTES 12/11/2020 12:00:00 A M EDT MEDENT ([facility]) Spirometry 12/03/2020 12:00:00 AM EDT M [facility]ENT ([facility] [facility] OFFICE OUTPATIENT VISIT 25 MINUTES 12/03/2020 12:00:00 AM EDT [facility] ([facility]) Results ID Date Data Source [id number] 2021 09:30:00 AM EDT [facility] Name Value Range Interpretation Code Description Data Tri rce(s) Supporting Document(s) SARS-CoV-2 (COVID-19) RNA [Presence] in Respiratory specimen by AMOL with probe detection Not Detected [facility] This lab was ordered by [facility] and reported by [facility]. ID Date Data Source [id number] 12/03/2020 02:10:00 PM EDT [facility] ([facility]) Name Value Range Interpretation Code Description Data Tri rce(s) Supporting Document(s) PDFReport Laboratory test result [facility] ([facility]) FVC-Pred 5.38 L [facility] ([facility]) FVC-Pre 3.61 L [facility] ([facility]) FVC-%Pred-Pre 67 L [facility] ([facility]) Fev1-Pred 4.13 L [facility] ([facility]) FVC-LLN 4.38 L [facility] ([facility]) Fev1-%Pred-Pre 73 L [facility] ([facility]) Fev1-Pre 3.01 L [facility] ([facility]) Fev1-LLN 3.28 L [facility] ([facility]) Fev6-Pred 5.17 L [facility] ([facility]) Fev6-Pre 3.61 L [facility] ([facility]) Fev6-%Pred-Pre 69 L [facility] ([facility]) Fev6-LLN 4.20 L [facility] ([facility]) Cgg9xkm-Sshs 77 % [facility] ([facility]) Lfq6rze-Gia 84 % [facility] ([facility]) Zbt6cpm-%Pred-Pre 108 % [facility] ([facility]) Opk1kjy-Nvqz 96 % [facility] ([facility]) Sex7fmc-HXW 67 % [facility] ([facility]) Otk4vux-Fgd 100 % [facility] ([facility]) Vgr0zvf-%Pred-Pre 103 % [facility] ([facility]) FEFMax-Pred 10.19 L/E/sec [facility] ([facility]) FEFMax-%Pred-Pre 56 L/E/sec [facility] ([facility]) FEFMax-Pre 5.77 L/E/sec [facility] ([facility]) FEFMax-LLN 7.70 L/E/sec [facility] ([facility]) Hbr6882-Zieq 3.51 L/E/sec [facility] ([facility]) Ezm5595-%Pred-Pre 98 L/E/sec [facility] ([facility]) Gkk4731-Kjs 3.46 L/E/sec [facility] ([facility]) Ndt4792-TRT 1.79 L/E/sec [facility] ([facility]) Xhv1tgz4-Eas 84 % [facility] ([facility]) ExpTime-Pre 6.51 sec [facility] ([facility]) Yyc0iav1-Hlqt 80 % [facility] ([facility]) Nzf5wtd7-%Pred-Pre 104 % [facility] ([facility]) Kzl3kyy0-MQB 71 % [facility] ([facility]) Procedure Social History Code Duration Value Status Description Data Source(s ) Smoking 12/23/2020 12:00:00 AM EDT Never Smoker completed Never S moker eCW1 ([facility]) Smoking 05/29/2020 12:00:00 AM EST Never Smoker completed Never S moker eCW1 ([facility]) Smoking 05/29/2020 12:00:00 AM EST Never Smoker completed Never S moker eCW1 ([facility]) Smoking 05/29/2020 12:00:00 AM EST Never Smoker completed Never S moker eCW1 ([facility]) Smoking 05/29/2020 12:00:00 AM EST Never Smoker completed Never S moker eCW1 ([facility]) Smoking 05/29/2020 12:00:00 AM EST Never Smoker completed Never S moker eCW1 ([facility]) Vital Signs ID Date Data Source UNK Name Value Range Interpretation Code Description Data Source(s) Body weight 216.4 [lb_av] 216.4 [lb_av] eCW1 ([facility]) Body weight 98.16 kg 98.16 kg eCW1 ([facility], 1928[facility]1983) Body height 72 [in_i] 72 [in_i] eCW1 ([facility]) Body mass index (BMI) [Ratio] 29.35 kg/m2 29.35 kg/m2 W1 ([facility]) Heart rate 60 /min 60 /min eCW1 ([facility]) Respiratory rate 16 /min 16 /min eCW1 ([facility]) Body temperature 97.2 [degF] 97.2 [degF] eCW1 ( [facility]) Systolic blood pressure 136 mm[Hg] 136 mm[Hg] e CW1 ([facility]) Diastolic blood pressure 66 mm[Hg] 66 mm[Hg] eCW1 ([facility]) Systolic blood pressure 132 mm[Hg] 132 mm[Hg] M EDENT ([facility], ) Diastolic blood pressure 74 mm[Hg] 74 mm[Hg] MED[facility] ([facility], ) Body height 72 [in_i] 72 [in_i] [facility] ([facility], ) 6'0" Body weight 213.00 [lb_av] 213.00 [lb_av] MEDEN T ([facility]) Body mass index (BMI) [Ratio] 28.9 kg/m2 28.9 k g/m2 [facility] ([facility]) Glendo body weight 178 [lb_av] 178 [lb_av] MEDEN T ([facility]) Body weight 96.617 kg 96.617 kg [facility] ([facility]) Body surface area Derived from formula 2.19 m2 2.19 m2 [facility] ([facility]) Systolic blood pressure 140 mm[Hg] 140 mm[Hg] [facility]) Diastolic blood pressure 70 mm[Hg] 70 mm[Hg] [facility] ([facility]) Glendo body weight 178 [lb_av] 178 [facility]_av] [facility] Body weight 97.070 kg 97.070 kg [facility] ([facility]) Heart rate 78 /min 78 /min [facility] ([facility]) Oxygen saturation in Arterial blood by Pulse oximetry 98 % 98 % [facility] ([facility]) Body height 72.5 [in_i] 72.5 [in_i] [facility] ([facility]) 6'0.50" Body weight 214.00 [lb_av] 214.00 [lb_av] [facility] Body mass index (BMI) [Ratio] 28.6 kg/m2 28.6 k g/m2 [facility] ([facility]) Body surface area Derived from formula 2.20 m2 2.20 m2 [facility] ([facility]) Body weight 215 [lb_av] 215 [lb_av] eCW1 ([facility]) Body height 72 [in_i] 72 [in_i] eCW1 ([facility]) Body mass index (BMI) [Ratio] 29.16 kg/m2 29.16 kg/m2 eCW1 ([facility]) Heart rate 73 /min 73 /min eCW1 ([facility]) Respiratory rate 16 /min 16 /min eCW1 ([facility]) Body temperature 98.3 [degF] 98.3 [degF] eCW1 ( [facility]) Systolic blood pressure 136 mm[Hg] 136 mm[Hg] e CW1 ([facility]) Diastolic blood pressure 86 mm[Hg] 86 mm[Hg] eCW1 ([facility]) Patient Treatment Plan of Care Planned Activity Planned Date Details Description Data Source (s) Ketoconazole 20 MG/ML Medicated Shampoo 05/29/2020 12:00:00 AM EST eCW1 ([facility]) Ketoconazole 20 MG/ML Medicated Shampoo 05/29/2020 12:00:00 AM EST eCW1 ([facility]) Ketoconazole 20 MG/ML Medicated Shampoo 05/29/2020 12:00:00 AM EST eCW1 ([facility]) Ketoconazole 20 MG/ML Medicated Shampoo 05/29/2020 12:00:00 AM EST eCW1 ([facility]) Ketoconazole 20 MG/ML Medicated Shampoo 05/29/2020 12:00:00 AM EST eCW1 ([facility])
[2021-01-22 11:10] VITALS: BP 122/59
--- NOTE | 2021-01-22 11:46 | ROOR ---
Patient Name: Akhil Baca Procedure Date: 01/22/2021 10:15 AM Date of : 1965 Age: 56 Room: [facility] Gender: Male Note Status: Finalized Procedure: Colonoscopy Indications: Screening for colorectal malignant neoplasm Providers: Jose Calabrese MD Referring MD: [facility], Admin. Requesting Provider: Medicines: Monitored Anesthesia Care Complications: No immediate complications. Procedure: Pre-Anesthesia Assessment: - Prior to the procedure, a History and Physical was performed, and patient medications and allergies were reviewed. The patient is competent. The risks and benefits of the procedure and the sedation options and risks were discussed with the patient. All questions were answered and informed consent was obtained. Patient identification and proposed procedure were verified by the physician, the nurse and the anesthesiologist in the procedure room. Mental Status Examination: alert and oriented. Airway Examination: normal oropharyngeal airway and neck mobility. Respiratory Examination: clear to auscultation. CV Examination: normal. Prophylactic Antibiotics: The patient does not require prophylactic antibiotics. Prior Anticoagulants: The patient has taken no previous anticoagulant or antiplatelet agents. ASA Grade Assessment: II - A patient with mild systemic disease. After reviewing the risks and benefits, the patient was deemed in satisfactory condition to undergo the procedure. The anesthesia plan was to use monitored anesthesia care (MAC). Immediately prior to administration of medications, the patient was re-assessed for adequacy to receive sedatives. The heart rate, respiratory rate, oxygen saturations, blood pressure, adequacy of pulmonary ventilation, and response to care were monitored throughout the procedure. The physical status of the patient was re-assessed after the procedure. The Colonoscope was introduced through the anus and advanced to the terminal ileum, with identification of the appendiceal orifice and IC valve. The colonoscopy was performed without difficulty. The patient tolerated the procedure well. The quality of the bowel preparation was good. The terminal ileum, ileocecal valve, appendiceal orifice, and rectum were photographed. Scope insertion time was 2 minutes. Scope withdrawal time was 9 minutes. The total duration of the procedure was 12 minutes. Findings: The perianal and digital rectal examinations were normal. The terminal ileum appeared normal. A 30 mm polyp was found in the sigmoid colon. The polyp was pedunculated. The polyp was removed with a hot snare. Resection and retrieval were complete. To close a defect after polypectomy, three hemostatic clips were successfully placed. There was no bleeding at the end of the procedure. Two sessile polyps were found in the sigmoid colon and ascending colon. The polyps were 8 to 10 mm in size. These polyps were removed with a hot snare. Resection and retrieval were complete. Verification of patient identification for the specimen was done by the physician and nurse using the patient's name, date and medical record number. Multiple small and large-mouthed diverticula were found from sigmoid to descending colon. There was no evidence of diverticular bleeding. Non-bleeding external and internal hemorrhoids were found during retroflexion. The hemorrhoids were medium-sized. Impression: - The examined portion of the ileum was normal. - One 30 mm polyp in the sigmoid colon, removed with a hot snare. Resected and retrieved. Clips were placed. - Two 8 to 10 mm polyps in the sigmoid colon and in the ascending colon, removed with a hot snare. Resected and retrieved. - Moderate diverticulosis from sigmoid to descending colon. There was no evidence of diverticular bleeding. - Non-bleeding external and internal hemorrhoids. Recommendation: - Patient has a contact number available for emergencies. The signs and symptoms of potential delayed complications were discussed with the patient. Return to normal activities tomorrow. Written discharge instructions were provided to the patient. - Clear liquid diet today, then advance as tolerated to high fiber diet. - Continue present medications. - Await pathology results. - Miralax 1 capful (17 grams) in 8 ounces of water PO daily for atleast 7 days and then adjust dose to have one to two soft bowel movements daily. - Telephone GI clinic for pathology results in 2 weeks. - Return to GI clinic if persistent symptoms or new symptoms. - Return to primary care physician. Procedure Code(s): --- Professional --- 90837, Colonoscopy, flexible; with removal of tumor(s), polyp(s), or other lesion(s) by snare technique Diagnosis Code(s): --- Professional --- K63.5, Polyp of colon Z12.11, Encounter for screening for malignant neoplasm of colon K64.8, Other hemorrhoids K57.30, Diverticulosis of large intestine without perforation or abscess without bleeding CPT copyright 2019 [employer]. All rights reserved. The codes documented in this report are preliminary and upon hvac sales representative review may be revised to meet current compliance requirements. Jose Calabrese MD Jose Calabrese MD 01/22/2021 11:45:58 AM Electronically signed by Jose Calabrese MD Number of Addenda: 0 Note Initiated On: 01/22/2021 10:15 AM Estimated Blood Loss: Estimated blood loss was minimal.
== END 2021-01-22 14:59 | disposition home or self-care (01) ==
LOC: M OPP 08:47
PROVIDERS: ATTEND Internal Medicine Gastroenterology
DX: Z12.11 Encounter for screening for malignant neoplasm of colon (principal); D12.6 Benign neoplasm of colon, unspecified; K57.30 Diverticulosis of large intestine without perforation or abscess without bleeding; K64.8 Other hemorrhoids; Z79.899 Other long term (current) drug therapy

== ENCOUNTER → 2021-03-07 | Outpatient (CLI) | payer OTHER ==
[~2021-03-07] MED LIST changes: -LIDOCAINE 2% 100MG/5ML SDV (FOR ANES.) As Ordered ONE; -NS 1,000 ML IV ONE; -propofoL 200 MG/20 ML VIAL As Ordered ONE
[2021-03-07 09:56] LABS: BASO % 0.5 % (0.0-1.0); EOS # 0.1 10^3/uL (0.0-0.5); EOS % 2.1 % (0.0-3.0); HEMATOCRIT 43.4 % (42.0-52.0); HEMOGLOBIN 15.3 g/dl (13.5-17.5); LYMPH # 1.4 10^3/uL (1.5-5.0); LYMPH % 25.5 % (24.0-44.0); MEAN CORPUSCULAR HEMOGLOBIN 33.1 pg (27.0-33.0); MEAN CORPUSCULAR HGB CONC 35.3 g/dl (32.0-36.5); MEAN CORPUSCULAR VOLUME 93.9 fl (80.0-96.0); MONO # 0.7 10^3/uL (0.0-0.8); NEUTROPHILS # 3.3 10^3/uL (1.5-8.5); NEUTROPHILS % 59.7 % (36.0-66.0); PLATELET COUNT, AUTOMATED 206 10^3/uL (150-450); RED BLOOD COUNT 4.62 10^6/uL (4.30-6.10); WHITE BLOOD COUNT 5.6 10^3/uL (4.0-10.0)
[2021-03-07 10:21] LABS: HEMOGLOBIN A1c 5.6 %
[2021-03-07 10:41] LABS: ALBUMIN 4.2 GM/DL (3.2-5.2); ALT/SGPT 39 U/L (12-78); BILIRUBIN,TOTAL 0.5 MG/DL (0.2-1.0); BLOOD UREA NITROGEN 12 MG/DL (7-18); CALCIUM LEVEL 9.8 MG/DL (8.5-10.1); CARBON DIOXIDE LEVEL 31 MEQ/L (21-32); CHLORIDE LEVEL 106 MEQ/L (98-107); CHOLESTEROL LEVEL 113 MG/DL (<200); CHOLESTEROL RISK RATIO 2.306 (<5); CREATININE FOR GFR 0.84 MG/DL (0.70-1.30); GLOMERULAR FILTRATION RATE > 60.0 (>56); GLUCOSE, FASTING 105 MG/DL (70-100); HDL CHOLESTEROL 49 MG/DL (>40); LDL CHOLESTEROL 27 MG/DL (<100); NON-HDL-C 64 MG/DL; SODIUM LEVEL 142 MEQ/L (136-145); TOTAL PROTEIN 7.6 GM/DL (6.4-8.2); TRIGLYCERIDES LEVEL 184 MG/DL (<150)
== END ==
LOC: M LAB 09:04
PROVIDERS: ATTEND Student in an Organized Health Care Education/Training Program
DX: Z00.00 Encounter for general adult medical examination without abnormal findings (principal); Z13.1 Encounter for screening for diabetes mellitus; E78.5 Hyperlipidemia, unspecified

== ENCOUNTER → 2022-01-07 | Outpatient (CLI) | payer OTHER | LOC: M CARPUL 10:08 | PROVIDERS: ATTEND Internal Medicine Critical Care Medicine | DX: D86.2 Sarcoidosis of lung with sarcoidosis of lymph nodes (principal) ==

== ENCOUNTER → 2022-05-06 | Outpatient (CLI) | payer OTHER | LOC: M EKG 10:46 | PROVIDERS: ATTEND Internal Medicine Critical Care Medicine | DX: R00.1 Bradycardia, unspecified (principal); D86.2 Sarcoidosis of lung with sarcoidosis of lymph nodes ==

== ENCOUNTER → 2022-09-03 | Outpatient (CLI) | payer OTHER | LOC: M PLAIMG 14:13 | PROVIDERS: ATTEND Internal Medicine Critical Care Medicine | DX: R91.8 Other nonspecific abnormal finding of lung field (principal) ==

== ENCOUNTER → 2023-02-15 | Day surgery (SDC) | payer OTHER ==
[~2023-02-15] VITALS: Ht 182.9 cm; Wt 98.1 kg
[~2023-02-15] MED LIST changes: +LIDOCAINE 2% 100MG/5ML SDV (FOR ANES.) As Ordered ONE; +NS 1,000 ML IV ONE; +propofoL 200 MG/20 ML VIAL As Ordered ONE
[2023-02-15 11:20] VITALS: TEMP 97.6
[2023-02-15 11:51] VITALS: BP 131/64; O2SAT 99
== END | disposition home or self-care (01) ==
LOC: M OPP 08:56
PROVIDERS: ATTEND Internal Medicine Gastroenterology
DX: Z12.11 Encounter for screening for malignant neoplasm of colon (principal); Z86.010 Personal history of colon polyps; K63.5 Polyp of colon; K64.4 Residual hemorrhoidal skin tags; K64.8 Other hemorrhoids; G47.30 Sleep apnea, unspecified; Z99.89 Dependence on other enabling machines and devices; Z79.02 Long term (current) use of antithrombotics/antiplatelets

== ENCOUNTER → 2023-04-10 | Outpatient (CLI) | payer BC ==
[~2023-04-10] MED LIST changes: -LIDOCAINE 2% 100MG/5ML SDV (FOR ANES.) As Ordered ONE; -NS 1,000 ML IV ONE; -propofoL 200 MG/20 ML VIAL As Ordered ONE
[2023-04-10 09:08] LABS: ALKALINE PHOSPHATASE 80 U/L (46-116); ALT/SGPT 44 U/L (7.0-40); AST/SGOT 31 U/L (<34); BILIRUBIN,TOTAL 0.7 MG/DL (0.3-1.2); BLOOD UREA NITROGEN 15 MG/DL (9-23); CALCIUM LEVEL 9.3 MG/DL (8.5-10.1); CARBON DIOXIDE LEVEL 29 MMOL/L (20-31); CHLORIDE LEVEL 108 MMOL/L (98-107); CREATININE FOR GFR 0.78 MG/DL (0.70-1.30); GLOMERULAR FILTRATION RATE > 60.0 (>56); GLUCOSE, FASTING 92 MG/DL (60-100); POTASSIUM SERUM 4.3 MMOL/L (3.5-5.1); SODIUM LEVEL 143 MMOL/L (136-145); TOTAL PROTEIN 7.3 G/DL (5.7-8.2)
== END ==
LOC: M LAB 08:22
PROVIDERS: ATTEND Internal Medicine Critical Care Medicine
DX: R91.8 Other nonspecific abnormal finding of lung field (principal)

== ENCOUNTER → 2023-04-13 | Outpatient (CLI) | payer BC ==
[~2023-04-13] MED LIST changes: +ISOVUE-370 76% 100ML VIAL ONE
== END ==
LOC: M PLAIMG 09:05
PROVIDERS: ATTEND Internal Medicine Critical Care Medicine
DX: R91.8 Other nonspecific abnormal finding of lung field (principal)
CPT/HCPCS: 71260; Q9967

== ENCOUNTER → 2023-06-30 | Outpatient (REF) ==
[~2023-06-30] MED LIST changes: -ISOVUE-370 76% 100ML VIAL ONE
== END ==
LOC: M PLAIMG 11:34
PROVIDERS: ATTEND Nurse Practitioner Family
DX: Z09 Encounter for follow-up examination after completed treatment for conditions other than malignant neoplasm (principal); Z87.81 Personal history of (healed) traumatic fracture

== ENCOUNTER → 2024-06-03 | Outpatient (CLI) | payer BC ==
[~2024-06-03] MED LIST changes: -ROSU40TA4 PO; +ROSU40TA81 PO
[2024-06-03 10:44] LABS: BASO % 0.4 % (0.0-1.0); EOS # 0.1 10^3/uL (0.0-0.5); EOS % 2.1 % (0.0-3.0); HEMATOCRIT 44.6 % (42.0-52.0); HEMOGLOBIN 15.5 g/dl (13.5-17.5); LYMPH # 1.4 10^3/uL (1.5-5.0); MEAN CORPUSCULAR HEMOGLOBIN 33.2 pg (27.0-33.0); MEAN CORPUSCULAR HGB CONC 34.8 g/dl (32.0-36.5); MEAN CORPUSCULAR VOLUME 95.5 fl (80.0-96.0); MONO # 0.5 10^3/uL (0.0-0.8); MONO % 10.8 % (2.0-8.0); NEUTROPHILS # 2.8 10^3/uL (1.5-8.5); NEUTROPHILS % 58.3 % (36.0-66.0); PLATELET COUNT, AUTOMATED 193 10^3/uL (150-450); RED BLOOD COUNT 4.67 10^6/uL (4.30-6.10); WHITE BLOOD COUNT 4.8 10^3/uL (4.0-10.0)
[2024-06-03 11:13] LABS: PSA SCREENING 0.64 NG/ML (< 4.00)
[2024-06-03 11:15] LABS: ALBUMIN 4.3 G/DL (3.2-5.2); ALKALINE PHOSPHATASE 88 U/L (40-129); ALT/SGPT 53 U/L (7.0-40); AST/SGOT 31 U/L (<34); BILIRUBIN,TOTAL 0.9 MG/DL (0.3-1.2); BLOOD UREA NITROGEN 18 MG/DL (9-23); CALCIUM LEVEL 9.6 MG/DL (8.5-10.1); CARBON DIOXIDE LEVEL 27 MMOL/L (20-31); CHLORIDE LEVEL 105 MMOL/L (98-107); CHOLESTEROL LEVEL 152 MG/DL (<200); CREATININE FOR GFR 0.83 MG/DL (0.70-1.30); GLOMERULAR FILTRATION RATE > 60.0 (>56); GLUCOSE, FASTING 135 MG/DL (60-100); HDL CHOLESTEROL 44.6 MG/DL (>40); LDL CHOLESTEROL 66.4 MG/DL (<100); NON-HDL-C 107.4 MG/DL; POTASSIUM SERUM 4.1 MMOL/L (3.5-5.1); SODIUM LEVEL 142 MMOL/L (136-145); TOTAL PROTEIN 7.8 G/DL (5.7-8.2); TRIGLYCERIDES LEVEL 205 MG/DL (<150)
== END ==
LOC: M LAB 09:22
PROVIDERS: ATTEND Family Medicine
DX: Z00.00 Encounter for general adult medical examination without abnormal findings (principal); E78.5 Hyperlipidemia, unspecified; Z12.5 Encounter for screening for malignant neoplasm of prostate
CPT/HCPCS: 36415; 80053; 80061; 85025; G0103

== ENCOUNTER → 2024-12-10 | Outpatient (CLI) | payer BC | LOC: M RAD 07:46 | PROVIDERS: ATTEND Internal Medicine Critical Care Medicine | DX: D86.2 Sarcoidosis of lung with sarcoidosis of lymph nodes (principal) ==